=== PATIENT | male | born 1955 | race Caucasian/White ===

== ENCOUNTER 2016-07-12 09:25 | Observation (INO) | payer OTHER ==
[~2016-07-12] VITALS: Ht 185.4 cm; Wt 28.6 kg
[~2016-07-12 09:25] MED LIST: AZIT250T74 PO; BECL0.07 INH; FLUT50I NASAL; PRED20 PO; PROT40TA PO; SOTA80TA PO; SYMB160A INH; SYMB80AE INH
[2016-07-12 09:39] VITALS: BP 131/84; PULSE 75; RESP 16; TEMP 98; O2SAT 95
--- NOTE | 2016-07-12 09:39 | PD ---
HPI Chief Complaint: chest pain Time Seen by Provider: 09:35 Travel History International Travel<30 days: No Contact w/Intl Traveler<30days: No Traveled to known affect area: No History of Present Illness HPI 60-year-old male with history of atrial fibrillation previously controlled on sotalol, was changed from sotalol to Cardizem due to br[facility]cardia [facility], and states that he had taken a few days of Cardizem but states that it was not controlling his heart rate, took his sotalol last night, started getting chest discomfort this morning measuring it as 6 out of 10. He was given nitroglycerin by EMS with complete symptom relief. He denies any shortness of breath, current chest pain, or any other issues. Modifying Factors: None Associated Signs & Symptoms: Chest pain episode Risk Factors: Recent medication changes PFSH Past Medical History Asthma: No Atrial Fibrillation: Yes (HX OF A FIB) Heart Rhythm Problems: Yes (afib) Cancer: No Cardiac Catheterization: Yes Cardiovascular Problems: Yes High Cholesterol: No Chest Pain: No Congestive Heart Failure: No Endocrine: No Genitourinary: No Immune Disorder: No Neurologic: No Psychiatric: No Respiratory: Yes (persistent coughing) Past Surgical History Abdominal Surgery: Yes (lap geronimo) Cardiac Surgery: Yes (heart cath) Cholecystectomy: Yes Ear Surgery: No Endocrine Surgery: No Eye Surgery: No Genitourinary Surgery: No Gynecologic Surgery: No Oral Surgery: No Thoracic Surgery: No Other Surgery: Yes (SINUS X - 2012) Social History Alcohol Use: No Tobacco Use: No Substance Use: No Allergies-Medications (Allergen,Severity, Reaction): Coded Allergies: Morphine (Verified Allergy, Severe, Respiratory Failure, 07/12/16) Penicillin (Verified Allergy, Severe, Hot/cold flashes, 07/12/16) Reported Meds & Prescriptions Reported Meds & Active Scripts Active Reported Diltiazem (Diltiazem HCl) 120 Mg Tab 120 Mg PO QID Omeprazole 20 Mg Tab 20 Mg PO DAILY Sotalol (Sotalol HCl) 80 Mg Tab 80 Mg PO DAILY Loratadine 10 Mg Tab 10 Mg PO DAILY Review of Systems Except as stated in HPI: all other systems reviewed are Neg Physical Exam Narrative GENERAL: Well-developed middle age white male patient currently not in acute distress. Awake and oriented 3. SKIN: Focused skin assessment warm/dry. HEAD: Atraumatic. Normocephalic. EYES: Pupils equal and round. No scleral icterus. No injection or drainage. ENT: No nasal bleeding or discharge. Mucous membranes pink and moist. NECK: Trachea midline. No JVD. CARDIOVASCULAR: Regular rate and rhythm. No murmur appreciated. Pulses are present and equal bilaterally. RESPIRATORY: No accessory muscle use. Clear to auscultation. Breath sounds equal bilaterally. GASTROINTESTINAL: Abdomen soft, non-tender, nondistended. Hepatic and splenic margins not palpable. MUSCULOSKELETAL: No obvious deformities. No clubbing. No cyanosis. No edema. NEUROLOGICAL: Awake and alert. No obvious cranial nerve deficits. Motor grossly within normal limits. Normal speech. PSYCHIATRIC: Appropriate mood and affect; insight and judgment normal. Data Data Last Documented VS Vital Signs Date Time Temp Pulse Resp B/P Pulse Ox O2 Delivery O2 Flow Rate FiO2 07/12/16 09:44 71 15 128/65 95 Nasal Cannula 2 07/12/16 09:39 98.0 Orders Electrocardiogram (07/12/16 09:35) Ckmb (Isoenzyme) Profile (07/12/16 09:35) Complete Blood Count With Diff (07/12/16 09:35) Comprehensive Metabolic Panel (07/12/16 09:35) Magnesium (Mg) (07/12/16 09:35) Prothrombin Time / Inr (Pt) (07/12/16 09:35) Act Partial Throm Time (Ptt) (07/12/16 09:35) Troponin I (07/12/16 09:35) Chest, Single Ap (07/12/16 09:35) Ecg Monitoring (07/12/16 09:35) Bilateral Bp Monitoring (07/12/16 09:35) Iv Access Insert/Monitor (07/12/16 09:35) Oximetry (07/12/16 09:35) Oxygen Administration (07/12/16 09:35) Sodium Chloride 0.9% Flush (Ns Flush) (07/12/16 09:45) CKMB (07/12/16 09:40) CKMB% (07/12/16 09:40) Admit Order (Ed Use Only) (07/12/16 10:28) Labs Laboratory Tests Test 07/12/16 09:40 White Blood Count 8.1 TH/MM3 Red Blood Count 5.38 MIL/MM3 Hemoglobin 16.6 GM/DL Hematocrit 48.4 % Mean Corpuscular Volume 89.9 FL Mean Corpuscular Hemoglobin 30.9 PG Mean Corpuscular Hemoglobin 34.3 % Concent Red Cell Distribution Width 13.8 % Platelet Count 262 TH/MM3 Mean Platelet Volume 8.3 FL Neutrophils (%) (Auto) 67.3 % Lymphocytes (%) (Auto) 20.7 % Monocytes (%) (Auto) 9.7 % Eosinophils (%) (Auto) 1.5 % Basophils (%) (Auto) 0.8 % Neutrophils # (Auto) 5.5 TH/MM3 Lymphocytes # (Auto) 1.7 TH/MM3 Monocytes # (Auto) 0.8 TH/MM3 Eosinophils # (Auto) 0.1 TH/MM3 Basophils # (Auto) 0.1 TH/MM3 CBC Comment DIFF FINAL Differential Comment Prothrombin Time 10.5 SEC Prothromb Time International 1.0 RATIO Ratio Activated Partial 28.0 SEC Thromboplast Time Sodium Level 141 MEQ/L Potassium Level 4.3 MEQ/L Chloride Level 108 MEQ/L Carbon Dioxide Level 26.7 MEQ/L Anion Gap 6 MEQ/L Blood Urea Nitrogen 17 MG/DL Creatinine 1.12 MG/DL Estimat Glomerular Filtration 67 ML/MIN Rate Random Glucose 93 MG/DL Calcium Level 8.6 MG/DL Magnesium Level 2.4 MG/DL Total Bilirubin 0.7 MG/DL Aspartate Amino Transf 21 U/L (AST/SGOT) Alanine Aminotransferase 33 U/L (ALT/SGPT) Alkaline Phosphatase 81 U/L Total Creatine Kinase 195 U/L Creatine Kinase MB 2.6 NG/ML Troponin I LESS THAN 0.02 NG/ML Total Protein 7.4 GM/DL Albumin 3.7 GM/DL [facility] Medical Decision Making Medical Screen Exam Complete: Yes Emergency Medical Condition: Yes Medical Record Reviewed: Yes Interpretation(s) EKG shows atrial fibrillation at a rate of 74 bpm. No signs of acute ST-T changes. Laboratory Tests Test 07/12/16 09:40 Monocytes (%) (Auto) 9.7 % (0.0-8.0) Chloride Level 108 MEQ/L (98-107) Estimat Glomerular Filtration 67 ML/MIN (>89) Rate Troponin I LESS THAN 0.02 NG/ML (0.02-0.05) Last 24 hours Impressions Chest X-Ray 07/12/16 0935 Signed Impressions: Service Date/Time: Tuesday, July 12, 2016 09:50 - CONCLUSION: No acute disease. Matteo Delacruz MD Differential Diagnosis Chest pain episodedysrhythmias versus ACS versus anxiety versus hypertensive urgency Narrative Course EKG shows A. fib but no signs of acute ST-T changes. Cardiac enzymes are negative. Chest x-rays unremarkable. Patient is chest pain-free in the ER. Vital signs are stable. At this point, my plan would be to admit the patient to chest pain center for further workup of chest pain. Diagnosis Primary Impression: Chest pain Admitting Information Admitting Physician Requests: Admit Ankita Bradshaw MD July 12, 2016 09:39
[2016-07-12 09:44] VITALS: BP_SYST 128; BP_SYST 131; BP_DIAS 65; BP_DIAS 82; PULSE 71; PULSE 75; RESP 15; O2SAT 95
[2016-07-12] MEDS ORDERED: SODIUM CHLORIDE 0.9% FLUSH 10 ML FLUSH IVF PRN (09:45)
[2016-07-12] MEDS ORDERED: OMEP20TA PO (09:52)
[2016-07-12] MEDS ORDERED: SOTA80TA PO ×3 (09:52→17:40)
[2016-07-12] MEDS ORDERED: LORA10TA PO (09:52)
[2016-07-12] MEDS ORDERED: DILT120T PO (09:52)
[2016-07-12 10:01] LABS: AUTOMATED NEUTROPHIL # 5.5 TH/MM3 (1.8-7.7); BASOPHIL # 0.1 TH/MM3 (0-0.2); BASOPHIL % 0.8 % (0.0-2.0); EOSINOPHIL # 0.1 TH/MM3 (0-0.4); EOSINOPHIL % 1.5 % (0.0-4.0); HEMATOCRIT 48.4 % (39.0-51.0); HEMO FLAGS DIFF FINAL; LYMPH % 20.7 % (9.0-44.0); LYMPHOCYTE # 1.7 TH/MM3 (1.0-4.8); MEAN CELL VOLUME 89.9 FL (80.0-100.0); MEAN CORPUSCULAR HEMOGLOBIN 30.9 PG (27.0-34.0); MEAN CORPUSCULAR HGB CONC 34.3 % (32.0-36.0); MONO % 9.7 % (0.0-8.0); NEUT % 67.3 % (16.0-70.0); PLATELET COUNT 262 TH/MM3 (150-450); RED BLOOD COUNT 5.38 MIL/MM3 (4.50-5.90); RED CELL DISTRIBUTION WIDTH 13.8 % (11.6-17.2); WHITE BLOOD COUNT 8.1 TH/MM3 (4.0-11.0)
--- NOTE | 2016-07-12 10:16 | RADRPT ---
EXAM DATE/TIME: 07/12/2016 09:50 [facility] COMPARISON: CHEST SINGLE AP, March 31, 2015, 15:05. INDICATIONS : Chest pains x 1 day, shortness of breath. MEDICAL HISTORY : None. SURGICAL HISTORY : None. ENCOUNTER: Initial ACUITY: 1 day PAIN SCORE: 8/10 LOCATION: Bilateral chest FINDINGS: A single view of the chest demonstrates the lungs to be symmetrically aerated without evidence of mas s, infiltrate or effusion. The cardiomediastinal contours are unremarkable. Osseous structures are intact. CONCLUSION: No acute disease. Matteo Delacruz MD on July 12, 2016 at 10:14 Board Certified Radiologist. This report was verified electronically.
[2016-07-12 10:19] LABS: PROTHROMBIN TIME - PATIENT 10.5 SEC (9.8-11.6)
[2016-07-12 10:21] LABS: ALT (GPT) 33 U/L (12-78); ANION GAP 6 MEQ/L (5-15); AST (GOT) 21 U/L (15-37); BICARBONATE 26.7 MEQ/L (21.0-32.0); BLOOD UREA NITROGEN 17 MG/DL (7-18); CHLORIDE 108 MEQ/L (98-107); GLOMERULAR FILTRATION RATE 67 ML/MIN (>89); MAGNESIUM 2.4 MG/DL (1.5-2.5); POTASSIUM 4.3 MEQ/L (3.5-5.1); SODIUM (NA) 141 MEQ/L (136-145)
[2016-07-12 10:24] LABS: ALKALINE PHOSPHATASE 81 U/L (45-117); CREATINE KINASE 195 U/L (39-308); TOTAL BILIRUBIN ADULT 0.7 MG/DL (0.2-1.0)
[2016-07-12 10:36] LABS: CKMB 2.6 NG/ML (0.5-3.6)
[2016-07-12] MEDS ORDERED: ASPIRIN 325 MG TAB PO ONE (10:45)
[2016-07-12] MEDS ORDERED: ACETAMINOPHEN 500 MG CPLT PO PRN (11:30)
[2016-07-12] MEDS ORDERED: SODIUM CHLORIDE 0.9% FLUSH 10 ML FLUSH IV FLUSH PRN (11:30)
[2016-07-12] MEDS ORDERED: NITROGLYCERIN 0.4 MG SL 25 TABS/BTL SL PRN (11:30)
[2016-07-12] MEDS ORDERED: ONDANSETRON HCL 4 MG/2 ML VIAL IV PRN (11:30)
[2016-07-12 12:15] VITALS: BP_SYST 123; BP_SYST 135; BP_DIAS 86; BP_DIAS 93; PULSE 72; RESP 18; TEMP 97.2; O2SAT 95
[2016-07-12 13:31] VITALS: PULSE 90
[2016-07-12 13:31] LABS: CREATINE KINASE 172 U/L (39-308)
[2016-07-12 13:44] LABS: CKMB 1.8 NG/ML (0.5-3.6)
--- NOTE | 2016-07-12 14:15 | HHI.HP ---
HPI Primary Care Physician [facility] Chief Complaint Palpitations History of Present Illness 60-year-old male with history of A. fib presents to emergency room for further evaluation chest pain and palpitations. Awoken at 2 AM with feelings of palpitations and left anterior sharp pain. Radiation of pain. No associated symptoms. Duration approximately 3-4 hours. Precipitating factors he believes his recent change sotalol to Cardizem last week. Relieving factors is taking Sotalol 80 mg. patient went to the [place] clinic this a.m. to discuss events of morning. [place] called EMS for transportation to ER for further evaluation of chest pain and palpitations. 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 States he has been on sotalol as 2000. Review of Systems General: No fatigue,weakness, fever, chills, recent illness. Has been in his general state of health. HEENT: No PARRISH, no vision changes, no dysphasia. Chronic postnasal drip despite monthly allergy shots and daily oral allergy medications. His had 2 past sinus surgeries. CV: As stated above. No current chest pain, pressure, or palpitations. No dizziness RESP: No SOB, cough, wheeze, or recent URI. GI: No nausea or vomiting, bowel changes, diarrhea, pain or distention.. No change in appetite. : No dysuria, urgency, frequency EXT: No lower leg edema, no paraesthesias MS: No discomfort or change in ROM NEURO: No change in memory, dizziness, difficulty with balance, LOC, motor/ sensory deficits PSYCH: No anxiety, depression SKIN: No rashes, no concerning lesions Past Family Social History Allergies: Coded Allergies: Morphine (Verified Allergy, Severe, Respiratory Failure, 07/12/16) Penicillin (Verified Allergy, Severe, Hot/cold flashes, 07/12/16) Past Medical History A. fib, GERD, chronic postnasal drip Past Surgical History Cholecystectomy, sinus surgery 2 Reported Medications Active Reported Diltiazem (Diltiazem HCl) 120 Mg Tab 120 Mg PO QID Omeprazole 20 Mg Tab 20 Mg PO DAILY Sotalol (Sotalol HCl) 80 Mg Tab 80 Mg PO DAILY Loratadine 10 Mg Tab 10 Mg PO DAILY Active Ordered Medications Current Medications Medications (Trade) Dose Ordered Sig/Anamika Route Start Time Stop Time Status Last Admin (NS Flush) 2 ml UNSCH PRN IVF 07/12/16 09:45 (NS Flush) 2 ml UNSCH PRN IV FLUSH 07/12/16 11:30 (NS Flush) 2 ml BID IV FLUSH 07/12/16 21:00 (Tylenol) 500 mg Q4H PRN PO 07/12/16 11:30 (Zofran Inj) 4 mg Q6H PRN IV 07/12/16 11:30 (Nitrostat Sl) 0.4 mg Q5M PRN SL 07/12/16 11:30 (Aspirin) 325 mg DAILY PO 07/13/16 09:00 (Claritin) 10 mg DAILY PO 07/13/16 09:00 (Protonix) 20 mg DAILY PO 07/13/16 09:00 Family History Noncontributory for early onset cardiovascular disease Social History No known hypertension, hyperlipidemia, or diabetes. Quit smoking 1984. Denies any alcohol or illegal drug use. States he is active. Past cardiac testing No recent stress testing. Last treadmill stress test completed 2011. Endorses a total of 6 stress test in the past all unremarkable. 01/2001cardiac catheterization. He was told he had no blockages or plaque buildup and that his test was "completely normal." Physical Exam Vital Signs Vital Signs Date Time Temp Pulse Resp B/P Pulse Ox O2 Delivery O2 Flow Rate FiO2 07/12/16 13:31 90 07/12/16 12:15 78 15 135/93 97 Nasal Cannula 2 07/12/16 12:15 97.2 72 18 123/86 95 07/12/16 09:44 71 15 128/65 95 Nasal Cannula 2 07/12/16 09:44 95 Nasal Cannula 07/12/16 09:44 75 15 131/82 95 Nasal Cannula 2 07/12/16 09:44 70 14 95 Room Air 07/12/16 09:39 98.0 75 16 131/84 95 Physical Exam GENERAL: Alert WN, WD, NAD, pleasant, obese male HEAD: NC, AT EYES: Sclera clear, conjunctiva without injection, pupils equal and round CV: Irregular regular rhythm without murmur, rub, gallop, no JVD, S1-S2 no S3- S4. No carotid bruits RESP: Clear lungs throughout bilateral, no crackles, wheeze, rhonchi, symmetrical chest rise, nonlabored, able to speak in full sentences ABD: Soft, NT, ND, no masses, positive bowel tones, obese EXT: Pulses +24, no dependent edema MS: Normal tone 4 extremities, nontender, no obvious deformities, full range of motion NEURO: CN II through CN XII grossly intact, motor strength 5/5, gait WNL PSYCH: A+O 3, pleasant affect, appropriate speech, appropriate mood and affect , insight and judgment SKIN: Normal turgor, normal texture, no lesions, no rashes, even hair distribution Laboratory Laboratory Tests Test 07/12/16 07/12/16 09:40 12:48 White Blood Count 8.1 Red Blood Count 5.38 Hemoglobin 16.6 Hematocrit 48.4 Mean Corpuscular Volume 89.9 Mean Corpuscular Hemoglobin 30.9 Mean Corpuscular Hemoglobin 34.3 Concent Red Cell Distribution Width 13.8 Platelet Count 262 Mean Platelet Volume 8.3 Neutrophils (%) (Auto) 67.3 Lymphocytes (%) (Auto) 20.7 Monocytes (%) (Auto) 9.7 Eosinophils (%) (Auto) 1.5 Basophils (%) (Auto) 0.8 Neutrophils # (Auto) 5.5 Lymphocytes # (Auto) 1.7 Monocytes # (Auto) 0.8 Eosinophils # (Auto) 0.1 Basophils # (Auto) 0.1 CBC Comment DIFF FINAL Differential Comment Prothrombin Time 10.5 Prothromb Time International 1.0 Ratio Activated Partial 28.0 Thromboplast Time Sodium Level 141 Potassium Level 4.3 Chloride Level 108 Carbon Dioxide Level 26.7 Anion Gap 6 Blood Urea Nitrogen 17 Creatinine 1.12 Estimat Glomerular Filtration 67 Rate Random Glucose 93 Calcium Level 8.6 Magnesium Level 2.4 Total Bilirubin 0.7 Aspartate Amino Transf 21 (AST/SGOT) Alanine Aminotransferase 33 (ALT/SGPT) Alkaline Phosphatase 81 Total Creatine Kinase 195 172 Creatine Kinase MB 2.6 1.8 Troponin I LESS THAN 0.02 LESS THAN 0.02 Total Protein 7.4 Albumin 3.7 Result Diagram: 07/12/1693907/12/16939 Imaging Last Impressions Chest X-Ray 07/12/16934 Signed Impressions: Service Date/Time: Tuesday, July 12, 2016 09:50 - CONCLUSION: No acute disease. Matteo Delacruz MD Course EKGs A. fib, no ST or T-segment changes Assessment and Plan Assessment and Plan #1 Chest painadmitted to chest pain center. 3 sets of EKGs and cardiac enzymes ordered. Will be seen and evaluated by Dr. Gino Brown. Further disposition to follow with a general freight agent discussed with patient. Patient is agreeable to any stress testing if warranted. Chest pain atypical most likely related to recent change in cardiac meds. #2 A. fibno further cardiac medication at this time until evaluated by general freight agent, will continue to monitor #3 GERDcontinue omeprazole Esperanza Ghosh July 12, 2016 14:15
[2016-07-12 16:00] VITALS: BP 131/78; PULSE 74; RESP 18; TEMP 98.5; O2SAT 93
[2016-07-12 16:14] LABS: CREATINE KINASE 156 U/L (39-308)
[2016-07-12 16:27] LABS: CKMB 2.1 NG/ML (0.5-3.6)
--- NOTE | 2016-07-12 17:25 | HHI.DCPOC ---
Discharge Care Plan Diagnosis: (1) Atypical chest pain (2) Afib Goals to Promote Your Health * To prevent worsening of your condition and complications * To maintain your health at the optimal level Directions to Meet Your Goals Take your medications as prescribed Follow your dietary instruction Follow activity as directed Keep your appointments as scheduled Take your immunizations and boosters as scheduled If your symptoms worsen call your PCP, if no PCP go to Urgent Care Center or Emergency Room Smoking is Dangerous to Your Health. Avoid second hand smoke Call the 24-hour hour crisis hotline for domestic abuse at Esperanza Ghosh July 12, 2016 17:25
--- NOTE | 2016-07-12 19:23 | EKG ---
Date Performed: 07/12/2016 Time Performed: 09:33:09 PTAGE: 60 years EKG: ATRIAL FIBRILLATION ABNORMAL RHYTHM ECG PREVIOUS TRACING : 03/31/2015 15.28 Compared to the previous tracing a fib now present DOCTOR: Mehran Goodwin Interpretating Date/Time 07/12/2016 19:21:34
[2016-07-12] MEDS ORDERED: SODIUM CHLORIDE 0.9% FLUSH 10 ML FLUSH IV FLUSH SCH (21:00)
[2016-07-13] MEDS ORDERED: PANTOPRAZOLE SOD 20 MG DELAYED RELEASE TAB PO SCH (09:00)
[2016-07-13] MEDS ORDERED: LORATADINE 10 MG TAB PO SCH (09:00)
[2016-07-13] MEDS ORDERED: ASPIRIN 325 MG TAB PO SCH (09:00)
--- NOTE | 2016-07-14 12:56 | EKG ---
Date Performed: 07/12/2016 Time Performed: 13:07:38 PTAGE: 60 years EKG: ATRIAL FIBRILLATION ABNORMAL RHYTHM ECG PREVIOUS TRACING : 07/12/2016 09.33 Since previous tracing, no significant change noted DOCTOR: Gino rBown Interpretating Date/Time 07/14/2016 12:54:40
--- NOTE | 2016-07-14 12:56 | EKG ---
Date Performed: 07/12/2016 Time Performed: 15:43:59 PTAGE: 60 years EKG: ATRIAL FIBRILLATION ABNORMAL ECG PREVIOUS TRACING : 07/12/2016 13.07 Since previous tracing, no significant change noted DOCTOR: Gino Brown Interpretating Date/Time 07/14/2016 12:54:26
--- NOTE | 2016-07-14 12:58 | TR ---
Date Performed: 07/12/2016 Time Performed: 16:39:33 DOCTOR: Gino Brown DRUG LIST: CLINICAL HISTORY: REASON FOR TEST: Chest pain REASON FOR ENDING: OBSERVATION: CONCLUSION: Elan protocol completed. Stopped sec to exceeding target heart rate and leg fatigue . Maximum MN=606 % Target HR Cmolhrtt=781.0% Maximum BC=665/92 Total Exercise Time=5:01. No reprod ch est pain. No sob. No ectopy. No st t segment changes to suggest ischemia. Normal bp response. Recove ry quick and unremarkable. COMMENTS: Patient exercised using the Elan protocol. No electrocardiographic changes were seen to suggest ischemia. Hemodynamic response to exercise was normal. No significant arrhythmia was prese nt.
== END 2016-07-12 18:14 | disposition home or self-care (01) ==
LOC: NEPE 09:25 → NEDA 10:29 → NEPHCDU 12:27
PROVIDERS: ADMIT Internal Medicine Cardiovascular Disease; ATTEND Internal Medicine Cardiovascular Disease
DX: R07.89 Other chest pain (principal); I48.91 Unspecified atrial fibrillation; K21.9 Gastro-esophageal reflux disease without esophagitis; Z88.5 Allergy status to narcotic agent; Z88.0 Allergy status to penicillin
CPT/HCPCS: 71010; 80053; 82550; 82552; 83735; 84484; 85025; 85610; 85730; 93005; 93017; 99285; G0378